=== PATIENT | male | born 1975 | race Caucasian/White ===

== ENCOUNTER → 2021-06-08 | Outpatient (CLI) | payer OTHER ==
--- NOTE | 2021-06-08 11:33 | KCIC ---
EXAM: MRI left shoulder DATE: 06/08/2021 9:35 AM COMPARISON: None INDICATION: Reason: LEFT SHOULDE PAIN / Spl. Instructions: / History: Chronic lt shoulde pain, worse since Mar. Known slap tear. TECHNIQUE: Multiplanar, multisequence MRI of the left shoulder was performed without contrast. 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 No associated fracture. No os acr omiale. Type II acromion. Trace subacromial-subdeltoid bursal edema. Mild supraspinatus tendinosis. No discrete rotator cuff tear is seen. Rotator cuff muscle signal and bulk is normal without fatty atrophy. Intra-articular and extra articular long head biceps tendon is intact. No discrete labral tear within the constraints of this arthrographic study. Articular cartilage is gr ossly preserved. No fracture or osteonecrosis. IMPRESSION: 1. AC joint DJD with moderate associated edema in the distal clavicle possibly degenerative. Contusi on or stress reaction could also have this appearance. 2. Supraspinatus tendinosis. 3. Trace subacromial-subdeltoid bursitis. Electronically signed by: Anoop Weathers MD (06/08/2021 11:30 AM) [id number]
== END ==
LOC: KCIC MRI 09:00
PROVIDERS: ATTEND Nurse Practitioner Family
DX: M19.012 Primary osteoarthritis, left shoulder (principal); M75.82 Other shoulder lesions, left shoulder
CPT/HCPCS: 73221